=== PATIENT | female | born 1960 | race Asian ===

== ENCOUNTER 2018-12-04 11:28 | Emergency (ER) | payer OTHER, BC ==
[2018-12-04] MEDS ORDERED: FLUTISP (11:39)
[2018-12-04] MEDS ORDERED: SYNT100T (11:39)
[2018-12-04] MEDS ORDERED: VITA500054 PO (11:39)
[2018-12-04] MEDS ORDERED: IBUPROFEN 800 MG TAB PO ONE (12:15)
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
--- NOTE | 2018-12-04 13:11 | REP ---
Lumbar spine five views: There are no comparisons. 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 Vertebral body heights, interspacing alignment are normal. There are no compression deformities. There is no spondylolysis or spondylolisthesis. The pedicles and facets are unremarkable. Sacroiliac articulations are. 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 Electronically Signed by Eric Terrell MD 12/04/2018 01:03 P
[2018-12-04] MEDS ORDERED: CYCL5TAB PO (13:29)
[2018-12-04] MEDS ORDERED: IBUP80TA PO (13:29)
[2018-12-04 13:32] VITALS: BP 130/57
== END 2018-12-04 13:35 | disposition home or self-care (01) ==
LOC: M ED 11:28
DX: S16.1XXA Strain of muscle, fascia and tendon at neck level, initial encounter (principal); S39.012A Strain of muscle, fascia and tendon of lower back, initial encounter; V43.92XA Unspecified car occupant injured in collision with other type car in traffic accident, initial encounter; Y92.410 Unspecified street and highway as the place of occurrence of the external cause; M43.02 Spondylolysis, cervical region; Q76.49 Other congenital malformations of spine, not associated with scoliosis; E05.90 Thyrotoxicosis, unspecified without thyrotoxic crisis or storm; Z79.890 Hormone replacement therapy

== ENCOUNTER → 2020-03-19 | Outpatient (CLI) | payer SELFPAY ==
[~2020-03-19] MED LIST: CYCL5TAB PO; FLUTISP; IBUP80TA PO; SYNT100T; VITA500054 PO
== END ==
LOC: M LABSMTC 09:09
PROVIDERS: ATTEND Pediatrics
DX: Z20.828 Contact with and (suspected) exposure to other viral communicable diseases (principal)

== ENCOUNTER → 2020-03-30 | Outpatient (CLI) | payer SELFPAY | LOC: M LABSMTC 10:37 | PROVIDERS: ATTEND Pediatrics | DX: Z20.828 Contact with and (suspected) exposure to other viral communicable diseases (principal) ==